=== PATIENT | female | born 1990 | race Caucasian/White ===

== ENCOUNTER → 2017-02-26 | Outpatient (CLI) | payer OTHER, MEDICAID ==
[2017-02-26 17:59] LABS: BASO % 0.2 % (0.0-1.0); EOS # 0.2 K/mm3 (0.0-0.50); EOS % 1.9 % (0.0-3.0); LARGE UNSTAINED CELL # 0.1 K/mm3 (0.0-0.4); LARGE UNSTAINED CELL % 0.9 % (0.0-4.0); LYMPH # 1.7 K/mm3 (1.5-6.5); LYMPH % 19.9 % (24.0-44.0); MEAN CORPUSCULAR HEMOGLOBIN 30.5 pg (27.0-33.0); MEAN CORPUSCULAR HGB CONC 34.4 g/dl (32.0-36.5); MEAN CORPUSCULAR VOLUME 88.6 fl (80.0-96.0); MONO # 0.4 K/mm3 (0.0-0.8); NEUTROPHILS # 6.4 K/mm3 (1.8-7.7); NEUTROPHILS % 73.2 % (36.0-66.0); PLATELET COUNT, AUTOMATED 218 k/mm3 (150-450); RED CELL DISTRIBUTION WIDTH 12.5 % (11.5-14.5); WHITE BLOOD COUNT 8.7 K/mm3 (4.0-10.0)
[2017-02-27 10:27] LABS: HBsAg Prenatal NEGATIVE (NEGATIVE)
== END ==
LOC: M LAB 16:39
PROVIDERS: ATTEND Advanced Practice Midwife
DX: Z36 Encounter for antenatal screening of mother (principal); Z3A.00 Weeks of gestation of pregnancy not specified

== ENCOUNTER → 2017-03-07 | Outpatient (CLI) | payer OTHER ==
--- NOTE | 2017-03-07 15:57 | REP ---
Clinical: Dating and viability. Technique: Transabdominal first trimester obstetrical ultrasound with color Doppler evaluation. Findings: Single live early intrauterine is appreciated. Gestational sac with pole identified. [place]-rump length of 5.8 cm corresponds to 12 weeks 2 days gestational age with estimated date of delivery 09/17/2017. heart rate equals 158 beats per minute. A subchorionic hemorrhage is identified measuring 1.5 x 1.8 x 2.0 cm. Impression: Single live early intrauterine at 12 weeks 2 days gestational age. Moderate subchorionic hemorrhage noted. Complete anatomical assessment should be performed and 19-20 weeks. Signed by Mohan Olsmtead MD 03/07/2017 03:48 P
== END ==
LOC: M RAD 15:03
PROVIDERS: ATTEND Advanced Practice Midwife
DX: Z36 Encounter for antenatal screening of mother (principal)

== ENCOUNTER → 2017-04-03 | Outpatient (CLI) | payer OTHER | LOC: M LAB 10:24 | PROVIDERS: ATTEND Advanced Practice Midwife | DX: Z31.438 Encounter for other genetic testing of female for procreative management (principal) ==

== ENCOUNTER → 2017-04-25 | Outpatient (CLI) | payer OTHER ==
[~2017-04-25] MED LIST: FLINCHW9 PO
--- NOTE | 2017-04-26 06:33 | REP ---
Clinical: Anatomical evaluation. Comparison: 03/07/2017 . Findings: Examination demonstrates a single live intrauterine in cephalic presentation. motion is identified by technologist. Placenta is noted anteriorly and grade zero without evidence for placenta previa or abruption. Amniotic fluid volume is normal. Cervix measures 4.0 cm in length and appears closed. Nuchal cord cannot be excluded. Gestational age by LMP 20 weeks 1 day with KARLEY 09/11/2017 . Gestational age by current measurements 19 weeks 2 days with KARLEY 09/17/2017 . FHR equals 141 beats per minute. BPD 4.4 cm 19 weeks 3 days HC 16.9 cm 19 weeks 4 days AC 13.8 cm 19 weeks 2 days FL 2.9 cm 19 weeks 0 days HL 2.8 cm 19 weeks 1 day HC/AC ratio 1.23 Estimated weight 277 grams ( 17th percentile). Anatomical assessment demonstrates normal structures including cranium, cavum, lungs, four-chamber heart, diaphragm, stomach, cord insertion/three-vessel cord, bladder, and extremities. Limited evaluation of the cord plexus, posterior fossa, facial features, cardiac ventricular outflow tracts, kidneys and spine. Impression: Single live intrauterine in cephalic presentation demonstrating appropriate interval growth. Nuchal cord cannot be excluded. Anatomical limitations as described above may warrant reevaluation and follow-up. Signed by Mohan Olmstead MD 04/26/2017 05:11 A
== END ==
LOC: M RAD 15:27
PROVIDERS: ATTEND Advanced Practice Midwife
DX: Z36 Encounter for antenatal screening of mother (principal); Z3A.19 19 weeks gestation of pregnancy

== ENCOUNTER → 2017-05-23 | Outpatient (CLI) | payer OTHER ==
--- NOTE | 2017-05-23 18:55 | REP ---
OB ULTRASOUND: Real-time sonographic evaluation of the gravid uterus is performed. There is a single living intrauterine gestation with an estimated gestational age of 24 weeks 1 day based on LMP with EDC 09/11/2017. Today's measurements indicate appropriate growth. BPD 54 mm = 22 weeks 3 days, less than 5th percentile HC 209 mm = 23 weeks 0 days, 18th percentile AC 192 mm = 24 weeks 0 days, 47th percentile FL 42 mm = 23 weeks 5 days, 40th percentile HC/AC ratio 1.09 within normal range. Estimated weight 620 grams, 33rd percentile. heart rate 126 beats per minute. SEEN/GROSSLY UNREMARKABLE Lateral ventricles yes Posterior fossa yes Upper lip no Four-chamber heart yes LVOT yes RVOT no Stomach yes Cord insertion yes Three vessel cord yes Kidneys yes Bladder yes Spine yes Cervix: Closed and measures 4.4 cm in length. position: Vertex. Placenta: Anterior and grade 0 with no previa or abruption. Amniotic fluid: Within normal limits. Signed by Lawson Ahumada MD 05/24/2017 05:05 P
== END ==
LOC: M RAD 15:36
PROVIDERS: ATTEND Obstetrics & Gynecology
DX: Z36 Encounter for antenatal screening of mother (principal); Z3A.24 24 weeks gestation of pregnancy

== ENCOUNTER → 2017-06-07 | Outpatient (CLI) | payer OTHER ==
--- NOTE | 2017-06-07 16:27 | REP ---
Obstetric sonography: History: Supervision of followup anatomy. Comparison study 05/23/2017, at 07:00 p.m.. Findings: Scanning through the gravid uterus demonstrates a viable single intrauterine gestation in a cephalic lie. motion is observed and heart rate is recorded 136 beats per minute. An anterior grade 0 placenta is seen without evidence of previa or abruption. Amniotic fluid is subjectively normal. No extrauterine abnormalities observed. Umbilical cord is seen draping across shoulders. There has been appropriate interval growth. Exam quality was inhibited by maternal body habitus. Coronal images of face are unremarkable. Profile is not well seen today but was seen previously. Upper and lower extremities are less than optimally seen today but were previously seen. The following additional anatomic structures are identified today and felt to be unremarkable: cranium, cavum, cerebellum posterior fossa, lungs, four-chamber heart with left and right ventricular outflow tract views, diaphragm, left-sided stomach, abdominal wall cord insertion, three-vessel cord, kidneys and bladder, spine. Biometry chart: BPD 5.7 cm 23 weeks 3 days Head circumference 22.8 cm 24 weeks 6 days Abdominal circumference 20.8 cm 25 weeks 3 days Femur length 4.8 cm 26 weeks 1 day Humeral length 4.3 cm 25 weeks 4 days HC/AC ratio normal 1.1, cephalic index normal 0.67 (0.70-0.86) estimated weight 815 grams 1 pound 12 ounces 22nd percentile for 26 weeks 2 days. Impression: Viable single intrauterine gestation at 25 weeks 0 days by today's composite criteria. Expected gestational age estimate based on prior sonography is 25 weeks 3 days. KARLEY by prior sonography 09/17/2017. anatomic survey is felt to be complete. Signed by Tonny Bella MD 06/07/2017 05:02 P
== END ==
LOC: M RAD 15:09
PROVIDERS: ATTEND Specialist
DX: Z36 Encounter for antenatal screening of mother (principal); Z3A.25 25 weeks gestation of pregnancy

== ENCOUNTER → 2017-06-19 | Outpatient (CLI) | payer OTHER ==
[2017-06-19 12:38] LABS: BASO % 0.1 % (0.0-1.0); EOS # 0.1 K/mm3 (0.0-0.50); EOS % 1.1 % (0.0-3.0); LARGE UNSTAINED CELL # 0.1 K/mm3 (0.0-0.4); LARGE UNSTAINED CELL % 1.2 % (0.0-4.0); LYMPH # 1.9 K/mm3 (1.5-6.5); LYMPH % 17.6 % (24.0-44.0); MEAN CORPUSCULAR HEMOGLOBIN 31.8 pg (27.0-33.0); MEAN CORPUSCULAR HGB CONC 35.5 g/dl (32.0-36.5); MEAN CORPUSCULAR VOLUME 89.7 fl (80.0-96.0); MONO # 0.3 K/mm3 (0.0-0.8); MONO % 3.1 % (0.0-5.0); NEUTROPHILS # 8.1 K/mm3 (1.8-7.7); NEUTROPHILS % 76.9 % (36.0-66.0); PLATELET COUNT, AUTOMATED 191 k/mm3 (150-450); RED CELL DISTRIBUTION WIDTH 13.5 % (11.5-14.5); WHITE BLOOD COUNT 10.6 K/mm3 (4.0-10.0)
== END ==
LOC: M LAB 10:40
PROVIDERS: ATTEND Specialist
DX: Z36 Encounter for antenatal screening of mother (principal); Z3A.00 Weeks of gestation of pregnancy not specified

== ENCOUNTER → 2017-08-12 | Outpatient (CLI) | payer OTHER ==
--- NOTE | 2017-08-12 18:33 | REP ---
OB ULTRASOUND: Real-time sonographic evaluation of the gravid uterus is performed. There is a single living intrauterine gestation. The estimated gestational age is 35 weeks 5 days based on LMP with EDC 09/11/2017. Today's measurements indicate appropriate growth. BPD 79 mm = 31 weeks 5 days, less than 5th percentile. HC 284 mm = 31 weeks 1 day, less than 5th percentile. AC 311 mm = 35 weeks 0 days, at the 40th percentile. Femur length 66 mm = 34 weeks 0 days, at the 24th percentile. HC/AC ratio 0.91 is slightly below normal range of 0.93 to 1.12. Estimated weight 2323 grams, 21st percentile. SD ratio 2.49 with a normal range of 2.0 to 3.0, RI 0.60 within normal range of 0.59 to 0.75. SEEN/GROSSLY UNREMARKABLE Lateral ventricles Yes Posterior fossa No Upper lip Yes Four-chamber heart No LVOT No RVOT No Stomach Yes Cord insertion No Three vessel cord Yes Kidneys Yes Bladder Yes Spine No position: Vertex heart rate: 156 beats per minute. Placenta: Anterior and grade 2 with no previa or abruption. Amniotic fluid: Within normal limits. Cervix is closed and measures 4.6 cm in length. Signed by Lawson Ahumada MD 08/13/2017 01:16 P
== END ==
LOC: M RAD 14:46
PROVIDERS: ATTEND Advanced Practice Midwife
DX: O26.843 Uterine size-date discrepancy, third trimester (principal); Z36.89 Encounter for other specified antenatal screening; Z3A.35 35 weeks gestation of pregnancy

== ENCOUNTER → 2017-08-23 | Outpatient (CLI) | payer OTHER ==
--- NOTE | 2017-08-23 17:39 | REP ---
BIOPHYSICAL PROFILE OB ULTRASOUND: 08/23/2017. Clinical history: Size date discrepancy, third trimester. Findings: There is a single intrauterine gestation in vertex position. Based on initial ultrasound she would be 36 weeks 3 days, EDC 09/17/2017. The skull shadows the cervix and it cannot be measured. There is a grade 2 anterior placenta without previa abruption. Visually, the amniotic fluid volume is normal with an index measurement 13.9 and normal range 7.4 - 24.1. Largest fluid pocket is 4.5 cm. Mid cord umbilical artery Doppler shows an S/D ratio 2.7 with normal forward diastolic flow. The cord drapes over the neck, nuchal cord cannot be entirely excluded. biometry: BPD 8.4 cm 33 weeks 6 days HC 31.5 cm 35 weeks 3 days AC 33.9 cm 37 weeks 5 days FL 7.1 cm 36 weeks 3 days HL 6.2 cm 36 weeks This gives average ultrasound age 35 weeks 6 days with EDC of 09/21/2017. Should note that the BPD is less than 5th percentile today and last few studies. All measurement ratios are in the normal range. Estimated weight 3008 grams or 6 pounds 10 ounces. This is 41st percentile for dating based on LMP. heart rate 153 and regular. Anatomy screen was neither requested or performed but the cranial vault, diaphragm, left-sided stomach bubble and the kidneys and bladder were seen and unremarkable. Biophysical profile: Breathing 2 Movement 2 Tone 2 AFV 2 Impression: 1. Single intrauterine gestation in vertex presentation. The cervix is obscured by shadowing from the skull. Estimated weight 41st percentile for dating based on LMP 37 weeks 4 days, by initial ultrasound she is 36 weeks 3 days by today's ultrasound 35 weeks 6 days. 2. BPD less than 5th percentile, and the anatomy screen exam on 04/25/2017, it was 31st percentile. Remainder of the measurements show 17th percentile for HC 53rd percentile ADC 32nd percentile. FL. . 3. Normal amniotic fluid index of 13.9 with heart rate 153 and normal cord Doppler. 4. BPP score 8/8. Signed by Efren Sierra MD 08/23/2017 05:55 P
== END ==
LOC: M RAD 16:22
PROVIDERS: ATTEND Obstetrics & Gynecology
DX: O26.843 Uterine size-date discrepancy, third trimester (principal); Z3A.35 35 weeks gestation of pregnancy

== ENCOUNTER → 2017-09-02 | Outpatient (CLI) | payer OTHER ==
[~2017-09-02] MED LIST changes: +IBUP1TAB7 PO; +IRON18TA2 PO; +PERCOCET PO
--- NOTE | 2017-09-02 15:56 | REP ---
Clinical: well-being and biophysical profile. Comparison: 08/23/2017 . Findings: Examination demonstrates a single live advanced intrauterine in cephalic presentation. motion is identified by technologist. Placenta is noted anteriorly and grade III without evidence for placenta previa or abruption. Amniotic fluid volume is normal. Gestational age by LMP 39 weeks 0 days with KARLEY 09/09/2017 . Gestational age by first US 37 weeks 6 days with KARLEY 09/17/2017 . FHR equals 140 beats per minute. BPP equals 8/8 Amniotic fluid index equals 13.6 cm (7.2 - 22.6). Umbilical cord SD ratio equals 2.46 (1.60 - 2.60). Impression: Single live advanced gestation in cephalic presentation. Biophysical profile score equals 8/8. Amniotic fluid index normal. Signed by Mohan Olmstead MD 09/02/2017 03:48 P
== END ==
LOC: M RAD 14:47
PROVIDERS: ATTEND Advanced Practice Midwife
DX: O36.5932 Maternal care for other known or suspected poor fetal growth, third trimester, fetus 2 (principal); Z3A.00 Weeks of gestation of pregnancy not specified

== ENCOUNTER 2017-09-06 06:21 | Inpatient (IN) | payer OTHER ==
[~2017-09-06] VITALS: Ht 154.9 cm; Wt 102.8 kg
[2017-09-06] VITALS (27 sets, daily range): BP systolic 97–138; BP diastolic 49–75
[~2017-09-06 06:21] MED LIST changes: -IBUP1TAB7 PO; -IRON18TA2 PO; -PERCOCET PO
[2017-09-06] MEDS ORDERED: LR 1,000 ML IV SCH (07:04)
[2017-09-06] MEDS ORDERED: OXYTOCIN DRIP 30 UNITS in APPROPRIATE DILUENT 1 EA IV SCH (07:15)
[2017-09-06] MEDS ORDERED: IRON18TA2 PO (07:36)
[2017-09-06 07:40] LABS: MEAN CORPUSCULAR HGB CONC 34.1 g/dl (32.0-36.5); MEAN CORPUSCULAR VOLUME 90.7 fl (80.0-96.0); PLATELET COUNT, AUTOMATED 175 10^3/uL (150-450); RED CELL DISTRIBUTION WIDTH 13.2 % (11.5-14.5); WHITE BLOOD COUNT 9.7 10^3/uL (4.0-10.0)
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
[2017-09-06] MEDS ORDERED: EPIDURAL/PCA KEYS XX PRN (15:15)
[2017-09-06] MEDS ORDERED: ONDANSETRON 4MG/2ML VIAL (J2405) IV PRN ×4 (15:15→18:45)
[2017-09-06] MEDS ORDERED: EPIDURAL COMMENT XX SCH (15:15)
[2017-09-06] MEDS ORDERED: FENTANYL/ROPIVACAINE/NACL BAG 200 ML EPIDURAL SCH (15:15)
[2017-09-06] MEDS ORDERED: LACTATED RINGER'S 1000 ML IV PRN (15:15)
[2017-09-06] MEDS ORDERED: diphenhydrAMINE INJ 50MG/ML VIAL (J1200) IV PRN (15:15)
[2017-09-06] MEDS ORDERED: NALOXONE INJ 0.4 MG/1 ML VIAL (J2310) IV PRN ×3 (15:15→17:45)
[2017-09-06] MEDS ORDERED: ePHEDrine SULFATE 25 MG/5 ML(5MG/ML) SYRINGE IV PRN (15:15)
[2017-09-06] MEDS ORDERED: REFRIGERATOR IV KEYS XX PRN (15:15)
[2017-09-06] MEDS ORDERED: FENTANYL 2MCG/ML ROPIVACAINE 0.2% IN 0.9% NACL 200ML IVBAG As Ordered ONE (15:18)
[2017-09-06] MEDS ORDERED: LACTATED RINGER'S 1000 ML IV STA (16:02)
[2017-09-06] MEDS ORDERED: OXYTOCIN INJ 10 UNITS/ML VIAL (J2590) As Ordered ONE (16:06)
[2017-09-06] MEDS ORDERED: ONDANSETRON 4MG/2ML VIAL (J2405) As Ordered ONE (16:46)
[2017-09-06] MEDS ORDERED: PHENYLephrine HCL 500 MCG/5 ML (100MCG/ML) SYRINGE (J2370) As Ordered ONE (16:48)
[2017-09-06] MEDS ORDERED: MORPHINE PRES-FREE INJ 10 MG/10 ML VIAL (J2274) As Ordered ONE (17:35)
[2017-09-06] MEDS ORDERED: NALBUPHINE HCL 10 MG/ML AMP (J2300) IV PRN ×2 (17:45→18:45)
[2017-09-06] MEDS ORDERED: METOCLOPRAMIDE INJ 10MG/2ML VIAL (J2765) IV PRN (17:45)
[2017-09-06] MEDS ORDERED: RHOGAM 300 MCG (1500 IU) INJ (J2790) IM SCH (18:30)
[2017-09-06] MEDS ORDERED: OXYTOCIN DRIP 30 UNITS in APPROPRIATE DILUENT 1 EA IV ONE (18:30)
[2017-09-06] MEDS ORDERED: MOM 30ML SUSPENSION UDC PO PRN (18:30)
[2017-09-06] MEDS ORDERED: MEASLES,MUMPS,RUBELLA VACCINE INJ (MMR-II) (90707) SC SCH (18:30)
[2017-09-06] MEDS ORDERED: METHYLERGONOVINE MALEATE 0.2 MG/ML VIAL (J2210) IM ONE (18:30)
[2017-09-06] MEDS ORDERED: PERCOCET 5MG/325MG TAB PO PRN ×2 (18:30)
[2017-09-06] MEDS ORDERED: IBUP1TAB7 PO (18:38)
[2017-09-06] MEDS ORDERED: PERCOCET PO (18:40)
[2017-09-06] MEDS ORDERED: fentaNYL 100 MCG/2 ML INJECTION (J3010) IV PRN (18:45)
[2017-09-06 20:11] LABS: MEAN CORPUSCULAR HEMOGLOBIN 31.3 pg (27.0-33.0); MEAN CORPUSCULAR HGB CONC 34.2 g/dl (32.0-36.5); MEAN CORPUSCULAR VOLUME 91.5 fl (80.0-96.0); PLATELET COUNT, AUTOMATED 151 10^3/uL (150-450); RED CELL DISTRIBUTION WIDTH 13.2 % (11.5-14.5); WHITE BLOOD COUNT 14.9 10^3/uL (4.0-10.0)
[2017-09-06] MEDS: LR 1,000 ML IV SCH (20:21)
[2017-09-06] MEDS: KETOROLAC 30 MG/ML VIAL (J1885) IV SCH (20:37)
[2017-09-06] MEDS: DOCUSATE SODIUM 100 MG CAP PO SCH (21:49)
[2017-09-07] MEDS: KETOROLAC 30 MG/ML VIAL (J1885) IV SCH ×3 (01:06→13:24)
[2017-09-07] MEDS: LR 1,000 ML IV SCH ×3 (01:07→18:29)
[2017-09-07 06:00] VITALS: BP 107/62
--- NOTE | 2017-09-07 06:58 | RO ---
DATE OF PROCEDURE: 09/06/2017 PREOPERATIVE DIAGNOSES: 1. Placenta abruption. 2. Repeat section. POSTPROCEDURE DIAGNOSES: 1. Placenta abruption. 2. Repeat section. PROCEDURE PERFORMED: Repeat section. SURGEON: Sylvia Baugh MD TOE SEWER: Kate Garcia CNM ANESTHESIA: Epidural. ESTIMATED BLOOD LOSS: 1000 mL. PREOPERATIVE ANTIBIOTICS: 2 grams of Ancef. INTRAVENOUS FLUIDS: 1200 mL of lactated ringer solution. URINE OUTPUT: 300 mL. OPERATIVE FINDINGS: Live born female , scores 9 and 9. SPECIMENS: None. DESCRIPTION OF PROCEDURE: After informed consent was obtained and written content was reviewed, the patient was brought to the operating room where she was prepped and draped in a normal sterile fashion. A Samson catheter had previously been placed and set to gravity. Anesthesia was then tested and deemed to be adequate. A Pfannenstiel skin incision was then made along the previous skin and this was carried down to the underlying rectus fascia. The fascia was scored and this incision was extended bilaterally. The fascia was then dissected off the underlying rectus muscles both superiorly and inferiorly. The rectus muscles were then in the midline. The peritoneum was then entered sharply, at which time, there was noted to be a thick adhesive band on the upper half of the anterior uterus to the anterior abdominal wall. This area was dissected. Next, attention was turned to the vesicouterine peritoneum which was tented and excised to create a bladder flap. A bladder blade was then placed retracting back the bladder. A curvilinear incision was then made in the lower uterine segment. The head was brought to the level of the incisoin. It was delivered atraumatically with the aid of Kiwi vacuum, followed by delivery of shoulders and corpus. The cord was clamped times two and the was taken to the warmer with a good cry. The placenta was then delivered grossly intact. The uterus was then exteriorized and cleared of all clots and debris. The uterine incision was closed in two layers using #0 Vicryl in a running locking fashion, followed by a second layer for imbrication in a running nonlocking fashion. Several kzootg-lw-nokgu stitches were placed along the uterine incision for uterine hemostasis. The area of the uterus where the adhesive band was located was oversewn with #0 Vicryl for hemostasis, as well as, several gwyjyf-ki-wsyal stitches. Surgicel was applied over the surgical lowe. The uterus was then returned in the patient's abdomen. The surgical sites were reinspected and noted to be hemostatic. The anterior peritoneum was then reapproximated with #3-0 Vicryl. The fascia was then closed using #0 Vicryl in a running nonlocking fashion. The subcutaneous tissue was then irrigated and suctioned. Subcutaneous tissue was reapproximated with #3-0 Vicryl. Several subdermal stitches were placed with #3-0 Vicryl and the skin was closed with #4-0 Monocryl in a subcuticular fashion. The incision was then cleaned and dried. Mastisol was applied above and below the incision. Steri-Strips were applied over the incision. The incision was dressed. The patient was then taken to recovery in stable condition. Counts were correct.
[2017-09-07 07:33] LABS: MEAN CORPUSCULAR HGB CONC 33.9 g/dl (32.0-36.5); MEAN CORPUSCULAR VOLUME 91.3 fl (80.0-96.0); PLATELET COUNT, AUTOMATED 143 10^3/uL (150-450); RED CELL DISTRIBUTION WIDTH 13.3 % (11.5-14.5); WHITE BLOOD COUNT 12.5 10^3/uL (4.0-10.0)
[2017-09-07] MEDS: PRENATAL VITAMINS CHEWABLE TABLET PO SCH (08:59)
[2017-09-07] MEDS: DOCUSATE SODIUM 100 MG CAP PO SCH ×2 (08:59→20:49)
[2017-09-07 10:00] VITALS: BP 101/52
[2017-09-07] MEDS ORDERED: LR 1,000 ML IV ONE (10:15)
[2017-09-07 18:14] VITALS: BP 129/66
[2017-09-07] MEDS: IBUPROFEN 800 MG TAB PO SCH (20:49)
[2017-09-07 22:00] VITALS: BP 115/59
[2017-09-08] MEDS: LR 1,000 ML IV SCH (00:26)
[2017-09-08] MEDS: IBUPROFEN 800 MG TAB PO SCH (05:00)
[2017-09-08 06:20] VITALS: BP 125/66
[2017-09-08] MEDS: DOCUSATE SODIUM 100 MG CAP PO SCH (09:00)
[2017-09-08] MEDS: PRENATAL VITAMINS CHEWABLE TABLET PO SCH (09:00)
[2017-09-08] MEDS ORDERED: ADACEL/BOOSTRIX VACCINE (DIPHTH/PERTUSS/ACELL/TETANUS)0.5ML SYR (90715) IM ONE (09:00)
== END 2017-09-08 11:40 | disposition home or self-care (01) | DRG 540 ==
LOC: M LDI 06:21 → M OBS 21:21
PROVIDERS: ADMIT Advanced Practice Midwife; ATTEND Obstetrics & Gynecology
PROC: 3E033VJ Introduction of Other Hormone into Peripheral Vein, Percutaneous Approach (ICD-10-PCS; 2017-09-06)
PROC: 10D00Z1 Extraction of Products of Conception, Low, Open Approach (ICD-10-PCS; principal; 2017-09-06 16:24)
DX: O36.5930 Maternal care for other known or suspected poor fetal growth, third trimester, not applicable or unspecified (principal); O45.93 Premature separation of placenta, unspecified, third trimester; Z3A.39 39 weeks gestation of pregnancy; O99.334 Smoking (tobacco) complicating childbirth; F17.210 Nicotine dependence, cigarettes, uncomplicated; O34.211 Maternal care for low transverse scar from previous cesarean delivery; Z37.0 Single live birth

== ENCOUNTER 2017-09-16 20:57 | Observation (INO) | payer OTHER ==
[~2017-09-16] VITALS: Ht 154.9 cm; Wt 98.6 kg
[~2017-09-16 20:57] MED LIST changes: +IBUP1TAB7 PO; +IRON18TA2 PO; +PERCOCET PO
[2017-09-17 04:12] LABS: BASO % 0.1 % (0.0-1.0); EOS # 0.1 10^3/uL (0.0-0.50); EOS % 0.4 % (0.0-3.0); IMMATURE GRANULOCYTE % 0.5 % (0-0); LYMPH # 0.9 10^3/uL (1.5-6.5); LYMPH % 5.3 % (24.0-44.0); MEAN CORPUSCULAR HEMOGLOBIN 30.2 pg (27.0-33.0); MEAN CORPUSCULAR HGB CONC 32.9 g/dl (32.0-36.5); MEAN CORPUSCULAR VOLUME 91.9 fl (80.0-96.0); MONO # 0.4 10^3/uL (0.0-0.8); MONO % 2.2 % (0.0-5.0); NEUTROPHILS # 15.6 10^3/uL (1.8-7.7); NEUTROPHILS % 91.5 % (36.0-66.0); PLATELET COUNT, AUTOMATED 245 10^3/uL (150-450); WHITE BLOOD COUNT 17.1 10^3/uL (4.0-10.0)
[2017-09-17 04:42] LABS: ALBUMIN 2.7 GM/DL (3.2-5.2); ALBUMIN/GLOBULIN RATIO 0.75 (1.00-1.93); ALKALINE PHOSPHATASE 90 U/L (45-117); ALT/SGPT 17 U/L (12-78); ANION GAP 9 MEQ/L (8-16); AST/SGOT 7 U/L (7-37); BILIRUBIN,DIRECT < 0.1 MG/DL (0.0-0.2); BILIRUBIN,TOTAL 0.3 MG/DL (0.2-1.0); BLOOD UREA NITROGEN 7 MG/DL (7-18); CALCIUM LEVEL 8.2 MG/DL (8.5-10.1); CARBON DIOXIDE LEVEL 26 MEQ/L (21-32); CHLORIDE LEVEL 105 MEQ/L (98-107); CREATININE FOR GFR 0.63 MG/DL (0.55-1.02); GLOMERULAR FILTRATION RATE > 60.0 (>60); GLUCOSE, FASTING 109 MG/DL (70-105); POTASSIUM SERUM 3.8 MEQ/L (3.5-5.1); SODIUM LEVEL 140 MEQ/L (136-145); TOTAL PROTEIN 6.3 GM/DL (6.4-8.2)
[2017-09-17] MEDS ORDERED: ISOVUE-370 76% 100ML VIAL (Q9967) As Ordered ONE (06:14)
--- NOTE | 2017-09-17 07:20 | REPUSA ---
CLINICAL HISTORY: Abdominal pain. TECHNIQUE: Multiple axial, sagittal and coronal CT images were obtained through the abdomen and pelvi s after administration of intravenous contrast material. COMMENTS: Post gravid uterus. Surgical changes of the anterior abdominal wall. Diffuse subcutaneous soft tissue edema and thickening. Subcutaneous anterior soft tissue fluid collection/ seroma of the lower aspect of the anterior abdomi nal wall measuring 9.6x5.3x6.1 cm in its largest transverse, anteroposterior and craniocaudal dimensi ons respectively. Small right pleural effusion. Passive atelectatic airspace disease in the right lower lobe. Subsegmental atelectatic airspace disease in the left lower lobe. The liver is of uniform attenuation without mass or defect. There is no intra or extrahepatic biliary ductal dilatation. The spleen is normal. The gallbladder is within normal limits. The pancreas is of normal contour and attenuation characteristics. There is no evidence of adrenal mass. Both kidneys demonstrate prompt and equal nephrograms. The kidneys are normal in size, shape and conf iguration. There is no evidence of renal or ureteral mass. No renal or ureteral calculi are identifie d. There is no hydroureter or hydronephrosis. No evidence for appendicitis. There is no bowel wall thickening. No evidence for small or large rolando l obstruction. There is no evidence of abdominal ascites or lymphadenopathy. There is no evidence of intrinsic or extrinsic bladder mass. There is no pelvic ascites or lymphadeno mirna. Mild amount of fecal residue in the large bowels. Images of the lung bases show no evidence of pleural or parenchymal mass. The bony structures are free of lytic or blastic lesions. IMPRESSION: Post gravid uterus. Surgical changes of the anterior abdominal wall. Diffuse subcutaneous soft tissue edema and thickening. Subcutaneous anterior soft tissue fluid collection/ seroma of the lower aspect of the anterior abdomi nal wall measuring 9.6x5.3x6.1 cm in its largest transverse, anteroposterior and craniocaudal dimensi ons respectively. Small right pleural effusion. Passive atelectatic airspace disease in the right lower lobe. Subsegmental atelectatic airspace disease in the left lower lobe. Thank you for your kind referral of this patient.
[2017-09-17] MEDS ORDERED: ACETAMINOPHEN 325 MG TAB PO ONE (08:30)
[2017-09-17] MEDS ORDERED: AUGMENTIN 875 MG TAB PO ONE (08:45)
[2017-09-17] MEDS ORDERED: LIDOCAINE 1% MDV 20ML VIAL IM ONE (08:45)
[2017-09-17] MEDS ORDERED: IRON65TA PO (09:52)
[2017-09-17] MEDS ORDERED: PERC5TAB12 PO (09:52)
[2017-09-17] MEDS ORDERED: IBUP1TAB7 PO (09:52)
[2017-09-17] MEDS: LR 1,000 ML IV SCH ×2 (12:25→19:55)
[2017-09-17 12:30] VITALS: BP 140/83
[2017-09-17] MEDS ORDERED: ACETAMINOPHEN 500 MG TAB PO PRN (14:00)
[2017-09-17 14:35] VITALS: BP 141/74
--- NOTE | 2017-09-17 14:37 | HPE ---
DATE OF ADMISSION: 09/17/2017 27-year-old, 3, para 1-1-1-2 female, postoperative day number 11 status post section. Presents with feeling feverish at home, as well as having shaking chills. She developed pain in her left breast. She also had worsening pain in her abdominal incision. There is a foul odor near the incision. She is weaning off breast feeding currently. She came to the emergency room with a temperature of 102 degrees Fahrenheit. MEDICAL HISTORY: Noncontributory. SURGICAL HISTORY: section times two. OBSTETRICAL HISTORY: 1. 2007, miscarriage. 2. 2015, 24 week twin delivery by section, one twin 25 days after . 3. Current delivery, key at term, repeat section. ALLERGIES: No known drug allergies. SOCIAL HISTORY: The patient is . She smelled of her cigarettes. She denies alcohol or drug use. She lives in [place]. FAMILY HISTORY: Noncontributory. PHYSICAL EXAMINATION: Blood pressure 124/82, pulse 84. She appears flushed. HEAD AND NECK: Normal. LUNGS: Clear. HEART: Regular rate and rhythm. She has diffuse redness of the entire left breast and it is warm to touch. There are no masses palpable. There is no erythema at the incision. The incision is clean, dry and intact. Mildly tender to palpation. There is no uterine fundal tenderness. EXTREMITIES: Nontender with trace edema. LABORATORY DATA: White blood count 17,000. CT scan showed a 9 x 5 cm fluid collection in the subcutaneous tissue beneath the incision. ASSESSMENT: 27-year-old, 3, para 1-1-1-2 female, postoperative day #11 after section with mastitis of the left breast, as well as a probable seroma of the incision. The patient is being admitted for IV antibiotics. The patient admits to being unable to take oral antibiotics because she is unable to swallow pills. An attempt was made at incision and drainage of the abdominal incision in the emergency room, however, it was unsuccessful and a minimal amount of fluid was drained from the incision. Plan to admit until clinical improvement.
[2017-09-17 16:00] VITALS: BP 123/68
[2017-09-17 20:00] VITALS: BP 127/66
[2017-09-17] MEDS ORDERED: IBUPROFEN 100 MG/5 ML SUSP UDC DYE FREE PO PRN (20:00)
[2017-09-18] VITALS: BP 129/66
[2017-09-18] MEDS: LR 1,000 ML IV SCH ×3 (03:44→22:00)
[2017-09-18 07:27] LABS: BASO % 0.1 % (0.0-1.0); EOS # 0.4 10^3/uL (0.0-0.50); EOS % 2.8 % (0.0-3.0); IMMATURE GRANULOCYTE % 1.2 % (0-0); LYMPH # 0.9 10^3/uL (1.5-6.5); LYMPH % 6.1 % (24.0-44.0); MEAN CORPUSCULAR HEMOGLOBIN 30.2 pg (27.0-33.0); MEAN CORPUSCULAR HGB CONC 32.4 g/dl (32.0-36.5); MEAN CORPUSCULAR VOLUME 93.2 fl (80.0-96.0); MONO # 0.6 10^3/uL (0.0-0.8); MONO % 3.7 % (0.0-5.0); NEUTROPHILS # 13.2 10^3/uL (1.8-7.7); NEUTROPHILS % 86.1 % (36.0-66.0); PLATELET COUNT, AUTOMATED 181 10^3/uL (150-450); RED CELL DISTRIBUTION WIDTH 13.3 % (11.5-14.5); WHITE BLOOD COUNT 15.3 10^3/uL (4.0-10.0)
[2017-09-18 08:00] VITALS: BP 117/67
[2017-09-18] MEDS ORDERED: PRENATAL VITAMINS CHEWABLE TABLET PO SCH (09:00)
[2017-09-18 16:00] VITALS: BP 134/71
[2017-09-18 20:00] VITALS: BP 136/71
[2017-09-19] VITALS: BP 130/71
[2017-09-19] MEDS: LR 1,000 ML IV SCH (07:49)
[2017-09-19 08:00] VITALS: BP 134/81
[2017-09-19] MEDS ORDERED: TYLE325C PO (13:10)
== END 2017-09-19 14:55 | disposition home or self-care (01) ==
LOC: M ED 20:57 → M ED INP 09-17 09:30 → M PED 09-17 12:34
PROVIDERS: ADMIT Specialist; ATTEND Specialist
DX: O91.22 Nonpurulent mastitis associated with the puerperium (principal); O75.4 Other complications of obstetric surgery and procedures; R10.9 Unspecified abdominal pain; R50.9 Fever, unspecified; O99.335 Smoking (tobacco) complicating the puerperium; F17.210 Nicotine dependence, cigarettes, uncomplicated
CPT/HCPCS: 36415; 74177; 80048; 80076; 81001; 85025; 87040; 87086; 96365; 96376; 99284; J0690; Q9967

== ENCOUNTER → 2017-12-24 | Outpatient (REF) | payer OTHER, MEDICAID | LOC: M LAB REF 17:57 | DX: Z12.4 Encounter for screening for malignant neoplasm of cervix (principal) ==

== ENCOUNTER → 2018-06-19 | Outpatient (REF) | payer OTHER | LOC: M SFHCLERA 17:51 | DX: L98.9 Disorder of the skin and subcutaneous tissue, unspecified (principal) ==

== ENCOUNTER → 2018-08-05 | Outpatient (REF) | payer OTHER ==
[2018-08-05 17:47] LABS: BASO % 0.1 % (0.0-1.0); EOS # 0.2 10^3/uL (0.0-0.50); EOS % 2.5 % (0.0-3.0); HEMATOCRIT 37.9 % (36.0-47.0); HEMOGLOBIN 12.6 g/dl (12.0-15.5); IMMATURE GRANULOCYTE % 0.4 % (0-3.0); LYMPH # 2.2 10^3/uL (1.5-6.5); LYMPH % 27.2 % (24.0-44.0); MEAN CORPUSCULAR HGB CONC 33.2 g/dl (32.0-36.5); MEAN CORPUSCULAR VOLUME 87.3 fl (80.0-96.0); MONO # 0.4 10^3/uL (0.0-0.8); MONO % 5.5 % (0.0-5.0); NEUTROPHILS # 5.1 10^3/uL (1.8-7.7); NEUTROPHILS % 64.3 % (36.0-66.0); PLATELET COUNT, AUTOMATED 243 10^3/uL (150-450); RED BLOOD COUNT 4.34 10^6/uL (4.00-5.40); RED CELL DISTRIBUTION WIDTH 12.8 % (11.5-14.5); WHITE BLOOD COUNT 7.9 10^3/uL (4.0-10.0)
[2018-08-05 22:27] LABS: ALBUMIN 3.4 GM/DL (3.2-5.2); ALBUMIN/GLOBULIN RATIO 0.89 (1.00-1.93); ALKALINE PHOSPHATASE 61 U/L (45-117); ALT/SGPT 21 U/L (12-78); ANION GAP 9 MEQ/L (8-16); AST/SGOT 20 U/L (7-37); BILIRUBIN,TOTAL 0.3 MG/DL (0.2-1.0); BLOOD UREA NITROGEN 8 MG/DL (7-18); CALCIUM LEVEL 9.3 MG/DL (8.5-10.1); CARBON DIOXIDE LEVEL 26 MEQ/L (21-32); CHLORIDE LEVEL 103 MEQ/L (98-107); CHOLESTEROL LEVEL 186 MG/DL (<200); CHOLESTEROL RISK RATIO 4.133 (<5); CREATININE FOR GFR 0.72 MG/DL (0.55-1.30); FREE T4 1.09 NG/DL (0.76-1.46); GLOMERULAR FILTRATION RATE > 60.0 (>60); GLUCOSE, FASTING 78 MG/DL (70-100); HDL CHOLESTEROL 45 MG/DL (>40); LDL CHOLESTEROL 68 MG/DL (<100); NON-HDL-C 141 MG/DL; POTASSIUM SERUM 4.4 MEQ/L (3.5-5.1); SODIUM LEVEL 138 MEQ/L (136-145); TOTAL PROTEIN 7.2 GM/DL (6.4-8.2); TRIGLYCERIDES LEVEL 363 MG/DL (<150)
[2018-08-05 22:41] LABS: ESTIMATED AVERAGE GLUCOSE 103 MG/DL (60-110); HEMOGLOBIN A1c 5.2 %
== END ==
LOC: M SFHCPLAZ 15:18
DX: E66.01 Morbid (severe) obesity due to excess calories (principal); J45.31 Mild persistent asthma with (acute) exacerbation; Z13.220 Encounter for screening for lipoid disorders
CPT/HCPCS: 84443

== ENCOUNTER 2018-09-27 18:45 | Emergency (ER) | payer OTHER ==
[2018-09-27 20:07] LABS: KETONE, URINE AUTO RFX NEGATIVE (NEGATIVE); LEUKOCYTE ESTERASE UR AUTO RFX TRACE (NEGATIVE); MUCUS, URINE RFX SMALL (NEGATIVE); NITRITE, URINE AUTO RFX NEGATIVE (NEGATIVE); RBC, URINE AUTO RFX 1 /HPF (0-3); SPECIFIC GRAVITY UR AUTO RFX 1.009 (1.002-1.035); SQUAM EPITHELIAL CELL UR AURFX 2 /HPF (0-6); WBC, URINE AUTO RFX 1 /HPF (0-3)
[2018-09-27 20:14] LABS: BASO % 0.3 % (0.0-1.0); EOS # 0.2 10^3/uL (0.0-0.50); EOS % 2.7 % (0.0-3.0); HEMATOCRIT 37.3 % (36.0-47.0); HEMOGLOBIN 12.6 g/dl (12.0-15.5); IMMATURE GRANULOCYTE % 0.1 % (0-3.0); LYMPH # 2.6 10^3/uL (1.5-6.5); LYMPH % 37.8 % (24.0-44.0); MEAN CORPUSCULAR HEMOGLOBIN 28.6 pg (27.0-33.0); MEAN CORPUSCULAR HGB CONC 33.8 g/dl (32.0-36.5); MEAN CORPUSCULAR VOLUME 84.6 fl (80.0-96.0); MONO # 0.5 10^3/uL (0.0-0.8); MONO % 6.5 % (0.0-5.0); NEUTROPHILS # 3.6 10^3/uL (1.8-7.7); NEUTROPHILS % 52.6 % (36.0-66.0); PLATELET COUNT, AUTOMATED 272 10^3/uL (150-450); RED BLOOD COUNT 4.41 10^6/uL (4.00-5.40); RED CELL DISTRIBUTION WIDTH 12.8 % (11.5-14.5); WHITE BLOOD COUNT 6.9 10^3/uL (4.0-10.0)
[2018-09-27 20:41] LABS: ALBUMIN 3.3 GM/DL (3.2-5.2); ALBUMIN/GLOBULIN RATIO 0.79 (1.00-1.93); ALKALINE PHOSPHATASE 63 U/L (45-117); ALT/SGPT 15 U/L (12-78); ANION GAP 10 MEQ/L (8-16); AST/SGOT 12 U/L (7-37); BILIRUBIN,DIRECT < 0.1 MG/DL (0.0-0.2); BILIRUBIN,TOTAL 0.1 MG/DL (0.2-1.0); BLOOD UREA NITROGEN 9 MG/DL (7-18); CALCIUM LEVEL 9.2 MG/DL (8.5-10.1); CARBON DIOXIDE LEVEL 23 MEQ/L (21-32); CHLORIDE LEVEL 105 MEQ/L (98-107); CREATININE FOR GFR 0.82 MG/DL (0.55-1.30); GLOMERULAR FILTRATION RATE > 60.0 (>60); GLUCOSE, FASTING 95 MG/DL (70-100); LIPASE 105 U/L (73-393); POTASSIUM SERUM 3.9 MEQ/L (3.5-5.1); SODIUM LEVEL 138 MEQ/L (136-145); TOTAL PROTEIN 7.5 GM/DL (6.4-8.2)
[2018-09-27] MEDS: NORCO, ANEXSIA 5/325MG TABLET (HYDROcodone/ACETAMINOPHEN) PO (20:49)
== END 2018-09-27 22:21 | disposition home or self-care (01) ==
LOC: M ED 18:45
DX: D25.9 Leiomyoma of uterus, unspecified (principal); M54.6 Pain in thoracic spine; M54.5 Low back pain; K21.9 Gastro-esophageal reflux disease without esophagitis; J45.909 Unspecified asthma, uncomplicated; Z72.0 Tobacco use; Z79.899 Other long term (current) drug therapy; Z91.013 Allergy to seafood
CPT/HCPCS: 76856

== ENCOUNTER → 2018-10-10 | Outpatient (CLI) | payer OTHER ==
[~2018-10-10] MED LIST changes: +AFLU1INJ; +BREO1INH; +IRON65TA PO; +PERC5TAB12 PO; +TYLE325C PO
--- NOTE | 2018-10-10 17:18 | REP ---
Clinical: Pelvic and perineal pain. Comparison: 09/27/2018 . Technique: Transabdominal pelvic ultrasound followed by transvaginal examination for better evaluation of the endometrium and adnexa with color Doppler evaluation of the ovaries. Findings: Bladder is unremarkable and measures 7.7 x 6.0 x 9.4 cm . Anteverted uterus measures 9.1 x 6.6 x 6.2 cm with 3.2 x 3.2 x 3.4 cm posterior subserosal fibroid. The endometrial complex measures 4.5 mm thickness. Bilateral ovaries are normal in appearance and vascularity without evidence for torsion. Right ovary measures 3.0 x 2.1 x 2.0 cm ; R I = normal venous Doppler flow noted . Left ovary measures 2.7 x 1.9 x 2.0 cm ; R I = normal venous Doppler flow noted . No pelvic fluid or adnexal mass lesion . Impression: 1. 3.4 cm posterior see subserosal fibroid. 2. No free fluid, adnexal mass, or torsion. Electronically Signed by Mohan Olmstead MD 10/10/2018 05:10 P
== END ==
LOC: M RAD 16:17
PROVIDERS: ATTEND Specialist
DX: D25.2 Subserosal leiomyoma of uterus (principal); R10.2 Pelvic and perineal pain

== ENCOUNTER → 2019-01-05 | Outpatient (REF) | payer OTHER ==
[2019-01-05 15:43] LABS: HEMOGLOBIN A1c 5.2 %
== END ==
LOC: M SFHCPLAZ 12:05
PROVIDERS: ATTEND Physician Assistant Medical
DX: E66.01 Morbid (severe) obesity due to excess calories (principal)

== ENCOUNTER 2019-01-23 08:32 | Day surgery (SDC) | payer OTHER ==
[~2019-01-23] VITALS: Ht 156.2 cm; Wt 104.3 kg
[~2019-01-23 08:32] MED LIST changes: +LIDOCAINE 2% INJ 100 MG/5 ML SDV (FOR ANES.) As Ordered ONE; +LR 1,000 ML IV ONE; +MIDAZOLAM INJ 2 MG/2 ML VIAL (J2250) As Ordered ONE; +NYST10CR PO; +ONDANSETRON 4MG/2ML VIAL (J2405) As Ordered ONE; +PREVTAB2; +PROPOFOL 200 MG/20 ML VIAL As Ordered ONE; +ROCURONIUM BROMIDE 50 MG/5 ML VIAL As Ordered ONE; +VENTAER INH; +dexameTHASONE 4 MG/ML 1ML VIAL (J1100) As Ordered ONE; +fentaNYL 100 MCG/2 ML INJECTION (J3010) As Ordered ONE
[2019-01-23 09:33] LABS: URINE PREG TEST NEGATIVE (NEGATIVE)
[2019-01-23] MEDS ORDERED: BUPIVACAINE HCL 0.25% 30 ML VIAL As Ordered ONE (10:29)
[2019-01-23] MEDS ORDERED: LIDOCAINE 1% SDV INJ 30 ML VIAL As Ordered ONE (10:29)
[2019-01-23] MEDS ORDERED: HYDROmorphone HCL 2 MG/ML 1ML VIAL (J1170) As Ordered ONE (11:05)
[2019-01-23] MEDS ORDERED: ACETAMINOPHEN 1000MG 100ML IV BTL (OFIRMEV) (J0131 PER 10MG) As Ordered ONE (11:37)
[2019-01-23] MEDS ORDERED: ROCURONIUM BROMIDE 50 MG/5 ML VIAL As Ordered ONE (11:39)
[2019-01-23] MEDS ORDERED: PROPOFOL 200 MG/20 ML VIAL As Ordered ONE (11:51)
[2019-01-23] MEDS ORDERED: GLYCOPYRROLATE INJ 0.2 MG/ML 2 ML VIAL As Ordered ONE (12:00)
[2019-01-23] MEDS ORDERED: NEOSTIGMINE 10 MG/10 ML VIAL (J2710) As Ordered ONE (12:00)
[2019-01-23] MEDS ORDERED: fentaNYL 100 MCG/2 ML INJECTION (J3010) IV PRN (12:45)
[2019-01-23] MEDS ORDERED: LR 1,000 ML IV SCH (12:45)
[2019-01-23] MEDS ORDERED: MEPERIDINE INJ 25 MG/ML VIAL (J2175) IV PRN (12:45)
[2019-01-23] MEDS ORDERED: PERCOCET 5MG/325MG TAB PO PRN (12:45)
[2019-01-23] MEDS ORDERED: KETOROLAC 30 MG/ML VIAL (J1885) IV PRN (12:45)
[2019-01-23] MEDS ORDERED: ONDANSETRON 4MG/2ML VIAL (J2405) IV PRN ×2 (12:45)
[2019-01-23] MEDS ORDERED: METOCLOPRAMIDE INJ 10MG/2ML VIAL (J2765) IV PRN (12:45)
[2019-01-23] MEDS ORDERED: NORCO, ANEXSIA 5/325MG TABLET (HYDROcodone/ACETAMINOPHEN) PO PRN ×2 (12:45)
--- NOTE | 2019-01-23 13:09 | ROOPDOC ---
[facility] Report Of Operation Report of Operation DATE OF PROCEDURE: 01/23/19 PREPROCEDURE DIAGNOSES: Umbilical hernia, morbid obesity, diastases. POSTPROCEDURE DIAGNOSES: Same. PROCEDURE: Laparoscopic repair of umbilical hernia with intraperitoneal onlay mesh (9 cm Parietex composite mesh). SURGEON: Meek Lewis MD ANESTHESIA: General Anesthesia ESTIMATED BLOOD LOSS: Approximately 5 mL. COMPLICATIONS: None. REMARKS: Known 8-year-old female with long-standing hernia worsened by her pregnancies with incarcerated omentum within the umbilical hernia defect. PROCEDURE NOTE: Multiple small holes underneath the umbilical cleft (I counted 3) next to each other. Very thin abdominal wall worsened with the diastases of her midline muscle as well as thinning of her abdominal muscles from her pregnancies. DESCRIPTION OF PROCEDURE: Patient was brought to the operating room for laparoscopic umbilical hernia repair. She received 2 g of Ancef IV preoperatively for wound prophylaxis. She was placed supine on the operating room table, compression boots placed in both lower extremities for DVT prophylaxis. General endotracheal anesthesia then started without any complication. His abdomen was widely prepped and draped in usual sterile fashion. Entry into into the abdomen done through a small incision over the left upper quadrant area subcostal, slightly lateral to accommodate the mesh placement. Veress needle was inserted on a controlled fashion. Intra-abdominal placement confirmed with saline drop technique. CO2 insufflation started to pressure 15 mmHg. Using the same incision a 5 mm Visiport was placed under direct vision of laparoscope. The area underneath the insertion site was inspected for injury and none was found. The table was turned right side down to create space for the left side for the working ports. A second working port was placed over the left lower quadrant area above the anterior superior iliac spine level. Operative findings: On Diagnostic laparoscopy a small umbilical fascial defect was noted just underneath the umbilicus where a small tongue of omentum was partially incarcerated inside the hernia defect. This was reduced by placing external pressure into the umbilical defect. Some remaining preperitoneal adipos e tissue as well as the hernia sac was dissected sharply and divided using the Harmonic scalpel. There are some preperitoneal fat tissue that was also inside the hernia space above the fascial defect was reduced back inside the abdomen, until no further nodularity that I could feel on palpation of the area above the hernia defect. The fatty adipose tissue invested in the peritoneum surrounding the hernia defect was cleared off with Harmonic scalpel. He has a moderate sized diastases of his midline muscles approximately about 2-3 centimeters evident. No other abdominal weakness or hernia defects found. After reducing the contents of the hernia defect back into the abdomen making sure we kept adequate hemostasis, I chose a 12 cm Parietex composite mesh. I labeled the rough side that will adhere to the abdominal wall, then placed 4 transabdominal sutures ( 2 undyed, 2 dyed) at the 3,6,9 and 12 o'clock position, rolled this tightly and placed this inside the abdomen temporarily removing the left lower quadrant 5 mm port and replacing it back after the mesh and sutures were fully inside the abdomen. The mesh was then unrolled and positioned directly centered underneath the fascial defect and oriented so as the rough side is facing the abdominal wall. Previously marked areas at the 12 3, 9 and 6 o'clock position in the abdominal wall was punctured with a 15 blade scalpel and the suture passer was then used to retrieve the transabdominal sutures to position the mesh centered at the fascial defect. Once the mesh was adequately positioned and centered, the abdominal pressure was decreased to 10 mmHg.Two rows of secure strap tacking jose were then placed circumferentially to affix the mesh to the abdominal wall with the outside rim of tacks placed 2 cm apart and inside rim about 3-4 cm beyond the fascial defect. The transabdominal sutures were tied snug but not tight. We inspected the mesh for proper placement and this appears to be aligned well to the abdominal wall, no active bleeding noted associated with the tacks. We surveyed the abdomen for any injury. The preperitoneal fat tissue that we reduced back in the abdomen were retrieved. The abdomen was insufflated. All ports were removed. The skin incisions at the port site were closed with 4-0 Monocryl in subsequent fashion. Dermabond dressing was placed at the port sites and the transabdominal sutures sites. Patient simply awakened, extubated and brought to recovery room stable. All counts of sponges and instruments were verified correct. MEEK LEWIS MD Jan 23, 2019 13:09
[2019-01-23] MEDS ORDERED: ALBUTEROL SULFATE 2.5 MG/0.5 ML INH NEB SOLN As Ordered ONE (13:13)
[2019-01-23] MEDS ORDERED: ALBUTEROL SULFATE 2.5 MG/0.5 ML INH NEB SOLN INH ONE (13:30)
[2019-01-23 18:32] VITALS: BP 117/64
== END 2019-01-23 18:32 | disposition home or self-care (01) ==
LOC: M SDC 08:32
PROVIDERS: ATTEND Surgery
DX: K42.9 Umbilical hernia without obstruction or gangrene (principal); E66.01 Morbid (severe) obesity due to excess calories; M62.08 Separation of muscle (nontraumatic), other site; J45.909 Unspecified asthma, uncomplicated; Z91.013 Allergy to seafood; Z79.899 Other long term (current) drug therapy; Z79.51 Long term (current) use of inhaled steroids
CPT/HCPCS: 49652; 84703; C1781; J0131; J0690; J1100; J1170; J2250; J2405; J2710; J3010

== ENCOUNTER → 2019-03-02 | Outpatient (REF) | payer OTHER ==
[~2019-03-02] MED LIST changes: +IBUP-1022 PO; -LIDOCAINE 2% INJ 100 MG/5 ML SDV (FOR ANES.) As Ordered ONE; -LR 1,000 ML IV ONE; -MIDAZOLAM INJ 2 MG/2 ML VIAL (J2250) As Ordered ONE; -ONDANSETRON 4MG/2ML VIAL (J2405) As Ordered ONE; +OXYC1TAB23 PO; -PROPOFOL 200 MG/20 ML VIAL As Ordered ONE; -ROCURONIUM BROMIDE 50 MG/5 ML VIAL As Ordered ONE; -dexameTHASONE 4 MG/ML 1ML VIAL (J1100) As Ordered ONE; -fentaNYL 100 MCG/2 ML INJECTION (J3010) As Ordered ONE
[2019-03-02 16:48] LABS: ALBUMIN 3.2 GM/DL (3.2-5.2); ALT/SGPT 16 U/L (12-78); BILIRUBIN,TOTAL 0.2 MG/DL (0.2-1.0); BLOOD UREA NITROGEN 7 MG/DL (7-18); CALCIUM LEVEL 9.2 MG/DL (8.5-10.1); CARBON DIOXIDE LEVEL 25 MEQ/L (21-32); CHLORIDE LEVEL 106 MEQ/L (98-107); CREATININE FOR GFR 0.65 MG/DL (0.55-1.30); GLOMERULAR FILTRATION RATE > 60.0 (>60); GLUCOSE, FASTING 88 MG/DL (70-100); SODIUM LEVEL 140 MEQ/L (136-145); TOTAL PROTEIN 6.7 GM/DL (6.4-8.2)
== END ==
LOC: M SFHCPLAZ 11:29
PROVIDERS: ATTEND Physician Assistant Medical
DX: E66.9 Obesity, unspecified (principal)

== ENCOUNTER 2019-03-23 07:56 | Day surgery (SDC) | payer OTHER ==
[~2019-03-23] VITALS: Ht 157.5 cm; Wt 101.7 kg
[~2019-03-23 07:56] MED LIST changes: -IBUP-1022 PO; +LIDOCAINE 1% MDV 20ML VIAL SQ PRN; -OXYC1TAB23 PO
[2019-03-23] MEDS ORDERED: ROCURONIUM BROMIDE 50 MG/5 ML VIAL As Ordered ONE (07:59)
[2019-03-23] MEDS ORDERED: PROPOFOL 200 MG/20 ML VIAL As Ordered ONE (07:59)
[2019-03-23] MEDS ORDERED: dexameTHASONE 4 MG/ML 1ML VIAL (J1100) As Ordered ONE (08:00)
[2019-03-23] MEDS ORDERED: ONDANSETRON 4MG/2ML VIAL (J2405) As Ordered ONE ×2 (08:00→15:38)
[2019-03-23] MEDS ORDERED: LIDOCAINE 2% INJ 100 MG/5 ML SDV (FOR ANES.) As Ordered ONE (08:00)
[2019-03-23] MEDS ORDERED: fentaNYL 250 MCG/5 ML INJECTION (J3010) As Ordered ONE (08:01)
[2019-03-23] MEDS ORDERED: MIDAZOLAM INJ 2 MG/2 ML VIAL (J2250) As Ordered ONE (08:02)
[2019-03-23 08:33] LABS: HEMATOCRIT 39.4 % (36.0-47.0); HEMOGLOBIN 13.2 g/dl (12.0-15.5); MEAN CORPUSCULAR HEMOGLOBIN 29.5 pg (27.0-33.0); MEAN CORPUSCULAR HGB CONC 33.5 g/dl (32.0-36.5); MEAN CORPUSCULAR VOLUME 88.1 fl (80.0-96.0); PLATELET COUNT, AUTOMATED 274 10^3/uL (150-450); RED BLOOD COUNT 4.47 10^6/uL (4.00-5.40); WHITE BLOOD COUNT 6.5 10^3/uL (4.0-10.0)
[2019-03-23 08:40] LABS: URINE PREG TEST NEGATIVE (NEGATIVE)
[2019-03-23] MEDS ORDERED: ALBUTEROL SULFATE 2.5 MG/0.5 ML INH NEB SOLN As Ordered ONE (09:00)
[2019-03-23] MEDS ORDERED: LR 1,000 ML IV ONE (09:00)
[2019-03-23] MEDS ORDERED: ALBUTEROL SULFATE 2.5 MG/0.5 ML INH NEB SOLN INH ONE (09:15)
[2019-03-23] MEDS ORDERED: BUPIVACAINE HCL 0.25% 10 ML VIAL As Ordered ONE (10:13)
[2019-03-23] MEDS ORDERED: NEOSTIGMINE 10 MG/10 ML VIAL (J2710) As Ordered ONE (12:27)
[2019-03-23] MEDS ORDERED: GLYCOPYRROLATE INJ 0.2 MG/ML 2 ML VIAL As Ordered ONE ×2 (12:27→12:30)
[2019-03-23] MEDS ORDERED: KETOROLAC 60 MG/2 ML VIAL (J1885) As Ordered ONE (12:27)
[2019-03-23] MEDS ORDERED: fentaNYL 100 MCG/2 ML INJECTION (J3010) As Ordered ONE (12:39)
[2019-03-23] MEDS ORDERED: OXYC1TAB23 PO (13:02)
[2019-03-23] MEDS ORDERED: IBUP-1022 PO (13:03)
[2019-03-23] MEDS ORDERED: LR 1,000 ML IV SCH ×2 (13:15)
[2019-03-23] MEDS ORDERED: fentaNYL 100 MCG/2 ML INJECTION (J3010) IV PRN (13:15)
[2019-03-23] MEDS ORDERED: PERCOCET 5MG/325MG TAB PO PRN ×2 (13:15)
[2019-03-23] MEDS ORDERED: ONDANSETRON 4MG/2ML VIAL (J2405) IV PRN (13:15)
[2019-03-23] MEDS ORDERED: HYDROMORPHONE HCL 0.5 MG/ 0.5 ML SYRINGE (J1170 PER 1) As Ordered ONE (13:29)
[2019-03-23] MEDS: HYDROMORPHONE HCL 0.5 MG/ 0.5 ML SYRINGE (J1170 PER 1) IV PRN ×2 (13:33→13:40)
[2019-03-23] MEDS ORDERED: PILL CUTTER 1 EACH XX ONE (13:47)
--- NOTE | 2019-03-23 14:18 | RO ---
DATE OF PROCEDURE: 03/23/2019 PREOPERATIVE DIAGNOSES: Fibroids, pelvic pain. POSTOPERATIVE DIAGNOSES: Fibroids, pelvic pain. PROCEDURE: Robotic assisted laparoscopic myomectomy, lysis of adhesions. SURGEON: Paul Ramos MD MORNING NEWS ANCHOR: ANESTHESIA: General endotracheal anesthesia. ESTIMATED BLOOD LOSS: 100 mL. URINE OUTPUT: 200 mL. FINDINGS: 3 cm subserosal posterior fundal uterine fibroid, dense adhesions of the uterus to the anterior abdominal wall, adhesions of omentum bilateral to the anterior abdominal wall, upper abdominal adhesions of bowel to the anterior abdominal wall. OPERATIVE SUMMARY: The patient was taken to the operating room where general endotracheal anesthesia was induced. She was prepped and draped in a sterile fashion in the dorsal lithotomy position. A Samson catheter was placed. A ZSoundvamp uterine manipulator was placed. A periumbilical incision was made with a scalpel. A Veress needle was placed through incision while tenting up on the skin of the abdomen. Intra-abdominal location of the Veress needle was assessed using a saline filled syringe. A pneumoperitoneum was created. Veress needle was removed. An 8 mm trocar using Kaymu.pk was inserted through this incision. Three 8 mm suprapubic ports were placed under direct visualization. Adhesions of omentum to the anterior abdominal were taken down with a combination of blunt and sharp dissection. A PK dissector was used to coagulate and incise the omental adhesions as well. Once access to the pelvis was obtained, the da Sandi surgical robot was docked to the ports. Using the bipolar fenestrated instrument and monopolar Endo Penelope, a linear incision was created in the serosa of the uterus vertically over the posterior uterine fibroid. The fibroid was dissected off the myometrium with a combination of blunt and sharp dissection. The fibroid was removed intact. The muscularis and serosa of the uterus were closed in a running locked fashion. The muscularis was entered to about 25% depth. Dense adhesions of the uterus to the anterior abdominal wall were taken down sharply with bipolar coagulation as well as Endo Penelope. Some blunt dissection was also utilized and the uterus was freed substantially from adhesions. The da Sandi surgical robot was undocked. The specimen which continued the uterine fibroid was placed in an Endo Catch bag and withdrawn through the umbilical incision. This was extended using Rodriguez scissors. A Chad was then used to grasp the fibroid and take it out in multiple pieces. The fascia of the umbilical port was closed with #2-0 Vicryl in a running fashion. The skin was closed with #4-0 Monocryl subcuticular sutures. Sponge, instrument and needle counts were correct.
[2019-03-23 17:55] VITALS: BP 139/73
== END 2019-03-23 18:05 | disposition home or self-care (01) ==
LOC: M SDC 07:56
PROVIDERS: ATTEND Specialist
DX: D25.9 Leiomyoma of uterus, unspecified (principal); N73.6 Female pelvic peritoneal adhesions (postinfective); L40.8 Other psoriasis; J45.909 Unspecified asthma, uncomplicated; Z79.51 Long term (current) use of inhaled steroids; F17.210 Nicotine dependence, cigarettes, uncomplicated
CPT/HCPCS: 36415; 58545; 84703; 85027; 86850; 86900; 86901; 88305; J1100; J1885; J2250; J2405; J2710; J3010

== ENCOUNTER 2019-04-18 20:51 | Emergency (ER) | payer OTHER ==
[~2019-04-18] VITALS: Ht 154.9 cm; Wt 104.5 kg
[~2019-04-18 20:51] MED LIST changes: +IBUP-1022 PO; -LIDOCAINE 1% MDV 20ML VIAL SQ PRN; +OXYC1TAB23 PO
[2019-04-18 21:20] LABS: BASO % 0.2 % (0.0-1.0); EOS # 0.3 10^3/uL (0.0-0.50); EOS % 3.5 % (0.0-3.0); HEMATOCRIT 39.3 % (36.0-47.0); HEMOGLOBIN 13.1 g/dl (12.0-15.5); LYMPH % 33.4 % (24.0-44.0); MEAN CORPUSCULAR HEMOGLOBIN 29.2 pg (27.0-33.0); MEAN CORPUSCULAR HGB CONC 33.3 g/dl (32.0-36.5); MEAN CORPUSCULAR VOLUME 87.7 fl (80.0-96.0); MONO # 0.6 10^3/uL (0.0-0.8); MONO % 6.2 % (0.0-5.0); NEUTROPHILS % 56.5 % (36.0-66.0); PLATELET COUNT, AUTOMATED 247 10^3/uL (150-450); RED BLOOD COUNT 4.48 10^6/uL (4.00-5.40); WHITE BLOOD COUNT 8.9 10^3/uL (4.0-10.0)
[2019-04-18] MEDS ORDERED: KETOROLAC 30 MG/ML VIAL (J1885) IV ONE (21:30)
[2019-04-18] MEDS ORDERED: NS 1,000 ML IV ONE (21:30)
[2019-04-18 21:38] LABS: ALBUMIN 3.6 GM/DL (3.2-5.2); ALT/SGPT 24 U/L (12-78); BILIRUBIN,DIRECT < 0.1 MG/DL (0.0-0.2); BILIRUBIN,TOTAL 0.2 MG/DL (0.2-1.0); BLOOD UREA NITROGEN 10 MG/DL (7-18); CALCIUM LEVEL 8.7 MG/DL (8.5-10.1); CARBON DIOXIDE LEVEL 23 MEQ/L (21-32); CHLORIDE LEVEL 107 MEQ/L (98-107); CREATININE FOR GFR 0.69 MG/DL (0.55-1.30); GLOMERULAR FILTRATION RATE > 60.0 (>60); GLUCOSE, FASTING 95 MG/DL (70-100); LIPASE 96 U/L (73-393); POTASSIUM SERUM 3.9 MEQ/L (3.5-5.1); SODIUM LEVEL 140 MEQ/L (136-145); TOTAL PROTEIN 7.4 GM/DL (6.4-8.2)
--- NOTE | 2019-04-18 22:53 | REPVR ---
EXAM: CT Abdomen and Pelvis Without Contrast EXAM DATE/TIME: 04/18/2019 10:11 PM CLINICAL HISTORY: 29 years old, female; Abdominal pain; Flank; Right; Additional info: R flank pain, hematuria TECHNIQUE: Imaging protocol: Axial computed tomography images of the abdomen and pelvis without contrast. Coronal and sagittal reformatted images were created and reviewed. Radiation optimization: All CT scans at this facility use at least one of these dose optimization techniques: automated exposure control; mA and/or kV adjustment per patient size (includes targeted exams where dose is matched to clinical indication); or iterative reconstruction. COMPARISON: CT ABD/PEL W/IV CONTRAST ONLY 09/17/2017 6:18 AM FINDINGS: Lungs: Minimal right middle lobe fibro-atelectatic change. Liver: Normal. No mass. Gallbladder and bile ducts: Normal. No calcified stones. No ductal dilation. Pancreas: Normal. No ductal dilation. Spleen: Normal. No splenomegaly. Adrenals: Normal. No mass. Kidneys and ureters: Normal. No hydronephrosis. Stomach and bowel: Normal. No obstruction. No mucosal thickening. Appendix: A normal appendix is seen. Intraperitoneal space: Normal. No free air. No significant fluid collection. Vasculature: Normal. No abdominal aortic aneurysm. Lymph nodes: Normal. No enlarged lymph nodes. Bladder: Unremarkable as visualized. Reproductive: Unremarkable as visualized. Bones/joints: No acute fracture. No dislocation. Soft tissues: Unremarkable. IMPRESSION: 1. Negative CT abdomen/pelvis. No renal or ureteral calculi are evident and there is no evidence of obstructive uropathy. 2. Resolution of lower anterior abdominal wall fluid collection and subcutaneous induration since 09/17/2017. There is also resolution of trace right pleural effusion and right lower lobe atelectasis. Electronically signed by: Alan Bell On 04/18/2019 22:52:54 PM
[2019-04-18 23:12] VITALS: BP 130/78
== END 2019-04-18 23:14 | disposition home or self-care (01) ==
LOC: M ED 20:51
DX: R10.9 Unspecified abdominal pain (principal); R11.0 Nausea; R31.29 Other microscopic hematuria; J45.909 Unspecified asthma, uncomplicated; Z91.013 Allergy to seafood; Z79.3 Long term (current) use of hormonal contraceptives
CPT/HCPCS: 74176; 80047; 80048; 80076; 81001; 83690; 84702; 85025; 87086; 96361; 96374; 99284; J1885

== ENCOUNTER → 2019-05-22 | Outpatient (REF) | payer OTHER | LOC: M LAB REF 13:48 | PROVIDERS: ATTEND Specialist | DX: Z12.4 Encounter for screening for malignant neoplasm of cervix (principal) ==

== ENCOUNTER → 2019-07-15 | Outpatient (REF) | payer OTHER ==
[2019-07-15 12:12] LABS: BASO % 0.3 % (0.0-1.0); EOS # 0.2 10^3/uL (0.0-0.5); EOS % 2.6 % (0.0-3.0); HEMATOCRIT 38.3 % (36.0-47.0); HEMOGLOBIN 12.8 g/dl (12.0-15.5); LYMPH # 2.1 10^3/uL (1.5-5.0); LYMPH % 27.3 % (24.0-44.0); MEAN CORPUSCULAR HEMOGLOBIN 29.5 pg (27.0-33.0); MEAN CORPUSCULAR HGB CONC 33.4 g/dl (32.0-36.5); MEAN CORPUSCULAR VOLUME 88.2 fl (80.0-96.0); MONO # 0.5 10^3/uL (0.0-0.8); MONO % 6.1 % (0.0-5.0); NEUTROPHILS # 4.8 10^3/uL (1.5-8.5); NEUTROPHILS % 63.4 % (36.0-66.0); PLATELET COUNT, AUTOMATED 256 10^3/uL (150-450); RED BLOOD COUNT 4.34 10^6/uL (4.00-5.40); WHITE BLOOD COUNT 7.6 10^3/uL (4.0-10.0)
[2019-07-15 12:52] LABS: FREE T4 0.96 NG/DL (0.76-1.46)
== END ==
LOC: M SFHCPLAZ 09:35
PROVIDERS: ATTEND Physician Assistant Medical
DX: J45.31 Mild persistent asthma with (acute) exacerbation (principal); E66.9 Obesity, unspecified

== ENCOUNTER → 2020-12-22 | Outpatient (REF) | payer OTHER | LOC: M SFHCPLAZ 12:31 | PROVIDERS: ATTEND Physician Assistant Medical | DX: J02.9 Acute pharyngitis, unspecified (principal) ==

== ENCOUNTER → 2021-01-23 | Outpatient (REF) | payer OTHER ==
[2021-01-23 14:21] LABS: BASO % 0.4 % (0.0-1.0); EOS # 0.2 10^3/uL (0.0-0.5); EOS % 2.7 % (0.0-3.0); HEMATOCRIT 40.6 % (36.0-47.0); HEMOGLOBIN 13.7 g/dl (12.0-15.5); LYMPH % 29.4 % (24.0-44.0); MEAN CORPUSCULAR HEMOGLOBIN 30.3 pg (27.0-33.0); MEAN CORPUSCULAR HGB CONC 33.7 g/dl (32.0-36.5); MEAN CORPUSCULAR VOLUME 89.8 fl (80.0-96.0); MONO # 0.5 10^3/uL (0.0-0.8); MONO % 7.6 % (2.0-8.0); NEUTROPHILS % 59.8 % (36.0-66.0); PLATELET COUNT, AUTOMATED 221 10^3/uL (150-450); RED BLOOD COUNT 4.52 10^6/uL (4.00-5.40); WHITE BLOOD COUNT 6.7 10^3/uL (4.0-10.0)
[2021-01-23 14:41] LABS: HEMOGLOBIN A1c 5.5 %
[2021-01-23 15:04] LABS: ALBUMIN 3.8 GM/DL (3.2-5.2); ALT/SGPT 29 U/L (12-78); BILIRUBIN,TOTAL 0.2 MG/DL (0.2-1.0); BLOOD UREA NITROGEN 9 MG/DL (7-18); CALCIUM LEVEL 9.6 MG/DL (8.5-10.1); CARBON DIOXIDE LEVEL 29 MEQ/L (21-32); CHLORIDE LEVEL 106 MEQ/L (98-107); CHOLESTEROL LEVEL 163 MG/DL (<200); CHOLESTEROL RISK RATIO 3.975 (<5); FREE T4 0.91 NG/DL (0.76-1.46); GLOMERULAR FILTRATION RATE > 60.0 (>60); GLUCOSE, FASTING 107 MG/DL (70-100); HDL CHOLESTEROL 41 MG/DL (>40); LDL CHOLESTEROL 77 MG/DL (<100); NON-HDL-C 122 MG/DL; POTASSIUM SERUM 4.2 MEQ/L (3.5-5.1); SODIUM LEVEL 139 MEQ/L (136-145); TRIGLYCERIDES LEVEL 223 MG/DL (<150)
== END ==
LOC: M SFHCPLAZ 10:50
PROVIDERS: ATTEND Physician Assistant Medical
DX: Z13.220 Encounter for screening for lipoid disorders (principal); E66.9 Obesity, unspecified; J45.31 Mild persistent asthma with (acute) exacerbation

== ENCOUNTER → 2021-01-30 | Outpatient (REF) | payer OTHER | LOC: M SFHCPLAZ 13:38 | PROVIDERS: ATTEND Physician Assistant Medical | DX: R19.5 Other fecal abnormalities (principal) ==

== ENCOUNTER → 2021-04-06 | Outpatient (REF) | payer OTHER | LOC: M SFHCPLAZ 12:55 | PROVIDERS: ATTEND Physician Assistant Medical | DX: B97.89 Other viral agents as the cause of diseases classified elsewhere (principal) ==

== ENCOUNTER → 2021-07-12 | Outpatient (REF) | payer OTHER | LOC: M SFHCPLAZ 13:02 | PROVIDERS: ATTEND Physician Assistant Medical | DX: J06.9 Acute upper respiratory infection, unspecified (principal) ==

== ENCOUNTER → 2021-08-02 | Outpatient (REF) | payer OTHER | LOC: M SFHCWAGY 15:08 | PROVIDERS: ATTEND Specialist | DX: Z01.419 Encounter for gynecological examination (general) (routine) without abnormal findings (principal); Z12.4 Encounter for screening for malignant neoplasm of cervix | CPT/HCPCS: 87624; G0123 ==

== ENCOUNTER → 2021-10-19 | Outpatient (REF) | payer OTHER | LOC: M SFHCPLAZ 16:46 | PROVIDERS: ATTEND Physician Assistant Medical | DX: J06.9 Acute upper respiratory infection, unspecified (principal) ==

== ENCOUNTER → 2021-11-01 | Outpatient (CLI) | payer OTHER ==
[2021-11-01 11:06] LABS: BASO % 0.3 % (0.0-1.0); EOS # 0.2 10^3/uL (0.0-0.5); EOS % 2.1 % (0.0-3.0); HEMOGLOBIN 13.3 g/dl (12.0-15.5); LYMPH % 19.5 % (24.0-44.0); MEAN CORPUSCULAR HEMOGLOBIN 29.8 pg (27.0-33.0); MEAN CORPUSCULAR HGB CONC 33.3 g/dl (32.0-36.5); MEAN CORPUSCULAR VOLUME 89.5 fl (80.0-96.0); MONO # 0.6 10^3/uL (0.0-0.8); MONO % 5.6 % (2.0-8.0); NEUTROPHILS # 7.3 10^3/uL (1.5-8.5); NEUTROPHILS % 72.2 % (36.0-66.0); PLATELET COUNT, AUTOMATED 272 10^3/uL (150-450); RED BLOOD COUNT 4.47 10^6/uL (4.00-5.40); WHITE BLOOD COUNT 10.1 10^3/uL (4.0-10.0)
[2021-11-01 11:16] LABS: INR 0.9; PROTHROMBIN TIME 12.5 SECONDS (12.7-14.5)
[2021-11-01 11:17] LABS: PARTIAL THROMBOPLASTIN TIME 27.8 SECONDS (25.9-37.0)
[2021-11-01 16:10] LABS: ALBUMIN 3.3 GM/DL (3.2-5.2); ALT/SGPT 22 U/L (12-78); BILIRUBIN,TOTAL 0.1 MG/DL (0.2-1.0); BLOOD UREA NITROGEN 8 MG/DL (7-18); CALCIUM LEVEL 9.4 MG/DL (8.5-10.1); CARBON DIOXIDE LEVEL 26 MEQ/L (21-32); CHLORIDE LEVEL 105 MEQ/L (98-107); CREATININE FOR GFR 0.61 MG/DL (0.55-1.30); FREE T4 1.17 NG/DL (0.76-1.46); GLOMERULAR FILTRATION RATE > 60.0 (>60); GLUCOSE, FASTING 91 MG/DL (70-100); NT-PRO BNP 23 PG/ML (<125); POTASSIUM SERUM 4.3 MEQ/L (3.5-5.1); SODIUM LEVEL 137 MEQ/L (136-145); THYROID STIMULATING HORMONE 0.945 uIU/ML (0.358-3.740); TOTAL PROTEIN 7.1 GM/DL (6.4-8.2)
== END ==
LOC: M LAB 10:07
PROVIDERS: ATTEND Family Medicine
DX: E66.9 Obesity, unspecified (principal); Z68.41 Body mass index [BMI] 40.0-44.9, adult

== ENCOUNTER → 2021-11-03 | Outpatient (CLI) | payer OTHER | LOC: M LAB 11:13 | PROVIDERS: ATTEND Family Medicine | DX: J45.30 Mild persistent asthma, uncomplicated (principal) ==

== ENCOUNTER → 2021-11-20 | Outpatient (CLI) | payer OTHER ==
[~2021-11-20] MED LIST changes: +FLUTISP NARES; +LORA-674 PO; +SPRI28TA PO
== END ==
LOC: M LABSMTC 09:39
PROVIDERS: ATTEND Anesthesiology
DX: Z01.812 Encounter for preprocedural laboratory examination (principal); Z20.822 Contact with and (suspected) exposure to COVID-19

== ENCOUNTER 2021-11-24 06:07 | Day surgery (SDC) | payer OTHER ==
[~2021-11-24] VITALS: Ht 157.5 cm; Wt 108.3 kg
[~2021-11-24 06:07] MED LIST changes: +LIDOCAINE 1% MDV 20ML VIAL SQ PRN; +LR 1,000 ML IV ONE
[2021-11-24] MEDS ORDERED: LIDOCAINE W/EPINEPHRINE 1% 20ML VIAL As Ordered ONE (07:05)
[2021-11-24] MEDS ORDERED: ROCURONIUM BROMIDE 50 MG/5 ML VIAL As Ordered ONE (07:17)
[2021-11-24] MEDS ORDERED: fentaNYL 100 MCG/2 ML INJECTION As Ordered ONE ×2 (07:17→07:54)
[2021-11-24] MEDS ORDERED: LIDOCAINE 2% 100MG/5ML SDV (FOR ANES.) As Ordered ONE (07:17)
[2021-11-24] MEDS ORDERED: MIDAZOLAM INJ 2MG/2ML VIAL (J2250 PER 1MG) As Ordered ONE (07:17)
[2021-11-24] MEDS ORDERED: propofoL 200 MG/20 ML VIAL As Ordered ONE (07:17)
[2021-11-24] MEDS ORDERED: dexameTHASONE 4 MG/ML 1ML VIAL (J1100 PER 1MG) As Ordered ONE (07:43)
[2021-11-24] MEDS ORDERED: ACETAMINOPHEN 1000MG 100ML IV BTL (OFIRMEV) (J0131 PER 10MG) As Ordered ONE (07:45)
[2021-11-24] MEDS ORDERED: SUGAMMADEX SODIUM 500 MG/5 ML VIAL (BRIDION) As Ordered ONE ×2 (07:53→07:54)
[2021-11-24] MEDS ORDERED: ONDANSETRON 4MG/2ML VIAL As Ordered ONE (07:53)
[2021-11-24] MEDS ORDERED: KETOROLAC 60MG 2ML VIAL As Ordered ONE (07:55)
[2021-11-24] MEDS ORDERED: LR 1,000 ML IV SCH (08:50)
[2021-11-24] MEDS ORDERED: PERCOCET 5MG/325MG TAB PO PRN (08:50)
[2021-11-24] MEDS ORDERED: ONDANSETRON 4MG/2ML VIAL IV PRN (08:50)
[2021-11-24] MEDS ORDERED: fentaNYL 100 MCG/2 ML INJECTION IV PRN (08:50)
[2021-11-24 10:15] VITALS: BP 138/81
== END 2021-11-24 10:15 | disposition home or self-care (01) ==
LOC: M SDC 06:07
PROVIDERS: ATTEND Dentist Oral and Maxillofacial Surgery
DX: K02.9 Dental caries, unspecified (principal); J98.4 Other disorders of lung; Z79.3 Long term (current) use of hormonal contraceptives
CPT/HCPCS: 41899; 81025; 88300; J0131; J1100; J1885; J2250; J2405; J3010

== ENCOUNTER → 2022-02-13 | Outpatient (CLI) | payer OTHER ==
[~2022-02-13] MED LIST changes: -LIDOCAINE 1% MDV 20ML VIAL SQ PRN; -LR 1,000 ML IV ONE
== END ==
LOC: M PLAIMG 09:26
PROVIDERS: ATTEND Physician Assistant Medical
DX: K43.9 Ventral hernia without obstruction or gangrene (principal)

== ENCOUNTER → 2022-09-21 | Outpatient (CLI) | payer OTHER ==
[~2022-09-21] MED LIST changes: +NYST-13 PO; -NYST10CR PO
== END ==
LOC: M PLAIMG 12:07
PROVIDERS: ATTEND Physician Assistant Medical
DX: J06.9 Acute upper respiratory infection, unspecified (principal)

== ENCOUNTER → 2023-01-29 | Outpatient (CLI) | payer OTHER ==
[~2023-01-29] MED LIST changes: +FLUT50SP17 NARES; -FLUTISP NARES
[2023-01-29 14:15] LABS: BASO % 0.4 % (0.0-1.0); EOS # 0.2 10^3/uL (0.0-0.5); EOS % 2.8 % (0.0-3.0); HEMATOCRIT 39.1 % (36.0-47.0); LYMPH # 2.3 10^3/uL (1.5-5.0); LYMPH % 28.5 % (24.0-44.0); MEAN CORPUSCULAR HEMOGLOBIN 29.4 pg (27.0-33.0); MEAN CORPUSCULAR HGB CONC 33.2 g/dl (32.0-36.5); MEAN CORPUSCULAR VOLUME 88.5 fl (80.0-96.0); MONO # 0.5 10^3/uL (0.0-0.8); MONO % 5.8 % (2.0-8.0); NEUTROPHILS # 5.1 10^3/uL (1.5-8.5); NEUTROPHILS % 62.3 % (36.0-66.0); RED BLOOD COUNT 4.42 10^6/uL (4.00-5.40); WHITE BLOOD COUNT 8.1 10^3/uL (4.0-10.0)
[2023-01-29 14:41] LABS: ALBUMIN 3.8 G/DL (3.2-5.2); ALKALINE PHOSPHATASE 66 U/L (46-116); ALT/SGPT 25 U/L (7.0-40); AST/SGOT 23 U/L (<34); BILIRUBIN,TOTAL 0.2 MG/DL (0.3-1.2); BLOOD UREA NITROGEN 9 MG/DL (9-23); CALCIUM LEVEL 9.2 MG/DL (8.5-10.1); CARBON DIOXIDE LEVEL 25 MMOL/L (20-31); CHLORIDE LEVEL 104 MMOL/L (98-107); CREATININE FOR GFR 0.57 MG/DL (0.55-1.30); FREE T4 0.99 NG/DL (0.89-1.76); GLOMERULAR FILTRATION RATE > 60.0 (>60); GLUCOSE, FASTING 87 MG/DL (60-100); POTASSIUM SERUM 4.4 MMOL/L (3.5-5.1); SODIUM LEVEL 137 MMOL/L (136-145); THYROID STIMULATING HORMONE 2.226 uIU/ML (0.55-4.78); TOTAL PROTEIN 6.9 G/DL (5.7-8.2)
[2023-01-29 15:10] LABS: PLATELET COUNT, AUTOMATED 163 10^3/uL (150-450)
[2023-01-29 16:37] LABS: HEMOGLOBIN A1c 5.3 % (4.0-6.0)
== END ==
LOC: M PLALAB 10:37
PROVIDERS: ATTEND Physician Assistant Medical
DX: J45.31 Mild persistent asthma with (acute) exacerbation (principal)

== ENCOUNTER 2023-02-24 15:14 | Emergency (ER) | payer OTHER ==
[~2023-02-24] VITALS: Ht 154.9 cm; Wt 107.4 kg
[2023-02-24 15:14] VITALS: BP 154/90
== END 2023-02-24 17:25 | disposition left against medical advice (07) ==
LOC: M ED 15:14
DX: Z53.21 Procedure and treatment not carried out due to patient leaving prior to being seen by health care provider (principal)

== ENCOUNTER → 2023-08-08 | Outpatient (CLI) | payer OTHER ==
[~2023-08-08] MED LIST changes: +LORA-1041 PO; -LORA-674 PO
[2023-08-08 15:24] LABS: HEMATOCRIT 33.4 % (36.0-47.0); HEMOGLOBIN 11.3 g/dl (12.0-15.5); MEAN CORPUSCULAR HGB CONC 33.8 g/dl (32.0-36.5); MEAN CORPUSCULAR VOLUME 88.6 fl (80.0-96.0); PLATELET COUNT, AUTOMATED 230 10^3/uL (150-450); RED BLOOD COUNT 3.77 10^6/uL (4.00-5.40); WHITE BLOOD COUNT 8.7 10^3/uL (4.0-10.0)
[2023-08-08 16:16] LABS: HIV 1&2 SCREEN NEGATIVE (NEGATIVE)
[2023-08-08 16:25] LABS: HEPATITIS C VIRUS ABY INDEX 0.03 INDEX (<0.8)
== END ==
LOC: M PLALAB 11:30
PROVIDERS: ATTEND Advanced Practice Midwife
DX: Z34.82 Encounter for supervision of other normal pregnancy, second trimester (principal)

== ENCOUNTER → 2023-08-08 | Outpatient (REF) | payer OTHER ==
[2023-08-08 16:27] LABS: GC DNA AMPLIFICATION NEGATIVE (NEGATIVE)
== END ==
LOC: M PLALAB 12:02
PROVIDERS: ATTEND Advanced Practice Midwife
DX: Z34.82 Encounter for supervision of other normal pregnancy, second trimester (principal)

== ENCOUNTER → 2023-10-01 | Outpatient (CLI) | payer MEDICAID ==
[~2023-10-01] MED LIST changes: -FLUT50SP17 NARES; +FLUTISP NARES
== END ==
LOC: M WHC 10:00
PROVIDERS: ATTEND Obstetrics & Gynecology
DX: O99.212 Obesity complicating pregnancy, second trimester (principal)

== ENCOUNTER → 2023-11-14 | Outpatient (CLI) | payer MEDICAID | LOC: M WHC 13:19 | PROVIDERS: ATTEND Specialist | DX: Z34.82 Encounter for supervision of other normal pregnancy, second trimester (principal) ==

== ENCOUNTER → 2023-12-10 | Outpatient (REF) | payer MEDICAID | LOC: M SFHCPLAZ 17:11 | PROVIDERS: ATTEND Physician Assistant | DX: R09.89 Other specified symptoms and signs involving the circulatory and respiratory systems (principal) ==

== ENCOUNTER → 2024-01-06 | Outpatient (REF) | payer OTHER, MEDICAID | LOC: M PLALAB 09:35 | PROVIDERS: ATTEND Obstetrics & Gynecology | DX: Z36.89 Encounter for other specified antenatal screening (principal); Z3A.36 36 weeks gestation of pregnancy ==

== ENCOUNTER → 2024-09-17 | Outpatient (CLI) | payer OTHER ==
[~2024-09-17] MED LIST changes: +COLA100C5 PO; +IBUP80TA PO; +PRENTAB53 PO
== END ==
LOC: M RAD 16:11
PROVIDERS: ATTEND Surgery
DX: K42.9 Umbilical hernia without obstruction or gangrene (principal)

== ENCOUNTER → 2024-12-07 | Outpatient (CLI) | payer OTHER ==
[~2024-12-07] MED LIST changes: +FLON1SPR; +LORA-243 PO
== END ==
LOC: M EKG 12:10
PROVIDERS: ATTEND Surgery
DX: K42.9 Umbilical hernia without obstruction or gangrene (principal)

== ENCOUNTER 2024-12-09 06:26 | Day surgery (SDC) | payer OTHER ==
[~2024-12-09] VITALS: Ht 157.5 cm; Wt 106.6 kg
[2024-12-09] MEDS ORDERED: NS (Normal Saline) 0.9% 1,000 ML IV SCH ×2 (06:35→10:15)
[2024-12-09] MEDS: CelecoXIB 400 MG CAP PO ONE (07:00)
[2024-12-09] MEDS ORDERED: ONDANSETRON 4MG 2ML VIAL As Ordered ONE (07:21)
[2024-12-09] MEDS ORDERED: ROCURONIUM BROMIDE 50MG/5ML VIAL As Ordered ONE (07:21)
[2024-12-09] MEDS ORDERED: LIDOCAINE 2% 100MG/5ML SDV (FOR ANES.) As Ordered ONE (07:21)
[2024-12-09] MEDS ORDERED: propofoL 200 MG/20 ML VIAL As Ordered ONE (07:21)
[2024-12-09] MEDS ORDERED: MIDAZOLAM INJ 2MG/2ML VIAL As Ordered ONE (07:22)
[2024-12-09] MEDS ORDERED: fentaNYL 250 MCG/5 ML INJECTION As Ordered ONE (07:22)
[2024-12-09] MEDS ORDERED: dexmedeTOMIDine (4MCG/ML)200MCG/50ML BTL (PRECEDEX) As Ordered ONE (07:25)
[2024-12-09] MEDS: ceFAZolin SOD 3 GM in DEXTROSE 5% (D5W) MINI-BAG PLU 1... IV ONE (07:40)
[2024-12-09] MEDS ORDERED: LACRILUBE (AKWA TEARS) OPHTH OINT 3.5GM As Ordered ONE (07:52)
[2024-12-09] MEDS ORDERED: ACETAMINOPHEN 1000MG/100ML IV BAG As Ordered ONE (07:54)
[2024-12-09] MEDS ORDERED: SEVOFLURANE INHAL SOLN 250 ML BTL As Ordered ONE (07:55)
[2024-12-09] MEDS: BUPivacaine LIPOSOME/PF 266MG 20ML VIAL (13.3MG/ML)(EXPAREL) As Ordered ONE (08:10)
[2024-12-09] MEDS ORDERED: PHENYLephrine 500MCG 5ML (100MCG/ML) SYRINGE As Ordered ONE (08:18)
[2024-12-09] MEDS ORDERED: METOCLOPRAMIDE INJ 10MG/2ML VIAL As Ordered ONE (08:23)
[2024-12-09] MEDS ORDERED: KETOROLAC 60MG 2ML VIAL As Ordered ONE (08:30)
[2024-12-09] MEDS ORDERED: SUGAMMADEX SODIUM 500 MG/5 ML VIAL (BRIDION) As Ordered ONE (08:30)
[2024-12-09] MEDS ORDERED: ePHEDrine SULFATE 25 MG/5 ML(5MG/ML) SYRINGE As Ordered ONE (09:44)
[2024-12-09] MEDS: LIDOCAINE 1% SDV 30ML VIAL As Ordered ONE (10:10)
[2024-12-09] MEDS ORDERED: fentaNYL 100 MCG/2 ML INJECTION IV PRN (10:15)
[2024-12-09] MEDS: HYDROMORPHONE HCL 0.5 MG/ 0.5 ML SYRINGE IV PRN (10:34)
[2024-12-09] MEDS: ONDANSETRON 4MG 2ML VIAL IV PRN (10:34)
[2024-12-09] MEDS: oxyCODONE 5MG TAB PO PRN (12:49)
[2024-12-09] MEDS: PROMETHAZINE 25MG/ML 1ML VIAL IV ONE (13:08)
[2024-12-09 13:45] VITALS: BP 127/65; TEMP 97.1; O2SAT 100
== END 2024-12-09 13:45 | disposition home or self-care (01) ==
LOC: M SDC 06:26
PROVIDERS: ATTEND Surgery
DX: K42.0 Umbilical hernia with obstruction, without gangrene (principal); M62.08 Separation of muscle (nontraumatic), other site; E66.01 Morbid (severe) obesity due to excess calories; J45.909 Unspecified asthma, uncomplicated; Z79.899 Other long term (current) drug therapy; M41.9 Scoliosis, unspecified; Z68.41 Body mass index [BMI] 40.0-44.9, adult; Z88.6 Allergy status to analgesic agent; Z87.891 Personal history of nicotine dependence
CPT/HCPCS: 49614; 49623; 88300; C1781; J0131; J0665; J0666; J0690; J1100; J1171; J1885; J2250; J2371; J2405; J2550; J2765; J3010; S2900

== ENCOUNTER → 2025-09-14 | Outpatient (CLI) | payer OTHER ==
[~2025-09-14] MED LIST changes: -IBUP-1022 PO; +IBUP600T42 PO; -NYST-13 PO; +NYST0.1C PO
[2025-09-14 14:14] LABS: BASO # 0.0 10^3/uL (0.0-0.2); BASO % 0.4 % (0.0-1.0); EOS # 0.2 10^3/uL (0.0-0.5); EOS % 2.4 % (0.0-3.0); LYMPH # 2.2 10^3/uL (1.5-5.0); LYMPH % 26.0 % (24.0-44.0); MONO # 0.5 10^3/uL (0.0-0.8); MONO % 6.2 % (2.0-8.0); NEUTROPHILS # 5.4 10^3/uL (1.5-8.5); NEUTROPHILS % 64.2 % (36.0-66.0); PLATELET COUNT, AUTOMATED 250 10^3/uL (150-450)
[2025-09-14 14:32] LABS: ESTIMATED AVERAGE GLUCOSE 108.0 MG/DL (60-110)
[2025-09-14 14:33] LABS: ALT/SGPT 20 U/L (7.0-40); AST/SGOT 18 U/L (<34); CALCIUM LEVEL 8.7 MG/DL (8.5-10.1); CARBON DIOXIDE LEVEL 25 MMOL/L (20-31); CHLORIDE LEVEL 105 MMOL/L (98-107); CHOLESTEROL LEVEL 173 MG/DL (<200); CHOLESTEROL RISK RATIO 3.16 (<5); CREATININE FOR GFR 0.57 MG/DL (0.55-1.30); CREATININE, URINE 74.4 MG/DL; GLOMERULAR FILTRATION RATE > 90.0 (>60); LDL CHOLESTEROL 83.0 MG/DL (<100); MALB URINE SIEMENS < 3.0 MG/L; NON-HDL-C 118.4 MG/DL; POTASSIUM SERUM 3.9 MMOL/L (3.5-5.1); SODIUM LEVEL 139 MMOL/L (136-145); TRIGLYCERIDES LEVEL 177 MG/DL (<150)
[2025-09-15 10:19] LABS: IRON (FE) 58 UG/DL (50-170)
== END ==
LOC: M PLALAB 11:07
PROVIDERS: ATTEND Physician Assistant Medical
DX: Z00.00 Encounter for general adult medical examination without abnormal findings (principal); Z13.1 Encounter for screening for diabetes mellitus; D50.9 Iron deficiency anemia, unspecified; Z13.220 Encounter for screening for lipoid disorders